=== PATIENT | female | born 1940 | race Caucasian/White ===

== ENCOUNTER 2017-02-13 20:57 | Inpatient (IN) | payer OTHER ==
[~2017-02-13] VITALS: Ht 152.4 cm; Wt 95.2 kg
[~2017-02-13 20:57] MED LIST: ACTONEL150 MG PO; ALBUTEROL2.5 MG/3 M IH; ASCORBIC ACID500 M3 PO; ASPIR 8181 M1 PO; ASPIR-LOW81 MG PO; ASPIRIN81 M2 PO; AUGMENTIN875 MG PO; Atarax,Vistaril PO; BYSTOLIC10 MG PO; CALCIUM 500 +1 EACH PO; COUMADIN3 M1 PO; COZAAR100 MG PO; CYMBALTA20 MG PO; ENDOCET 5-3251 EACH PO; FAMOTIDINE40 MG PO; FEXOFENADINE H180 MG PO; FIBER LAXATIVE625 M1 PO; GUAIFENESIN600 M1 PO; HYDRALAZINE HCL25 MG PO; HYDRALAZINE HCL50 M1 PO; HYZAAR 100-21 TABLET PO; KLONOPIN0.5 M1 PO; LASIX40 MG PO; LIPITOR20 MG PO; Lunesta PO; MICRO-K,K-DUR,10 MEQ PO; MIRAPEX0.5 MG PO; NORVASC10 MG PO; POTASSIUM CHLO10 MEQ PO; PREDNISONE10 MG PO; PREDNISONE20 MG PO; PREDNISONE5 M2 PO; PROBIOTIC1 EAC1 PO; SINGULAIR10 MG PO; SYMBICORT60 INHALAT IH; SYNTHROID100 MCG PO; Vitamin B-12 PO
[2017-02-13 21:55] LABS: EOSINOPHIL (%) 2.7 % (0-5); EOSINOPHIL COUNT 0.2 K/uL (0-0.3); HEMATOCRIT 30.3 % (36.0-46.0); IMMATURE GRANULOCYTE (%) 3.8 % (0.0-0.7); IMMATURE GRANULOCYTE COUNT 0.3 K/uL; LYMPHOCYTE COUNT 0.9 K/uL (1.0-2.8); MCH 30.8 PG (29.0-34.0); MCHC 32.3 G/DL (30.0-36.0); MCV 95.3 FL (83-99); MEAN PLAT.VOLUME 10.7 uM^3 (9.5-12.4); MONOCYTE (%) 12.9 % (3-12); NEUTROPHIL (%) 67.7 % (45-76); PLATELET COUNT 165 K/uL (156-360); RBC DIS.WIDTH-CV 13.3 % (11.8-14.6); RBC DIS.WIDTH-SD 46.7 % (39-53); RED BLOOD COUNT 3.18 M/uL (3.80-5.20); WHITE BLOOD COUNT 7.4 K/uL (4.1-10.2)
[2017-02-13 22:04] LABS: CHLORIDE 97 mEq/L (99-109); POTASSIUM 3.6 mEq/L (3.7-5.4); SODIUM 134 mEq/L (136-147)
[2017-02-13 22:06] LABS: GLUCOSE 127 mg/dL (70-99)
[2017-02-13 22:07] LABS: ANION GAP 10 MEQ/L (2-14)
[2017-02-13 22:10] LABS: GFR ESTIMATE (CALCULATED) 52 mL/min/
[2017-02-13 22:11] LABS: UREA NITROGEN (BUN) 18 mg/dL (9-23)
[2017-02-13] MEDS ORDERED: MIRAPEX0.5 MG PO (22:31)
[2017-02-13] MEDS ORDERED: PREDNISONE10 MG PO (22:32)
[2017-02-13] MEDS ORDERED: ONE-A-DAY ESSE1 EAC1 PO (22:33)
[2017-02-13] MEDS ORDERED: FUROSEMIDE40 MG PO (22:34)
[2017-02-13] MEDS ORDERED: ALDACTONE25 MG PO (22:34)
[2017-02-13] MEDS ORDERED: HYDROCORTISONE30 G2 TP (22:35)
[2017-02-13 22:54] LABS: ADD MIUA? YES; BILIRUBIN NEGATIVE; BLOOD NEGATIVE; COLOR YELLOW ((YELLOW)); GLUCOSE (STRIP) NEGATIVE; KETONES NEGATIVE; LEUKOCYTES LARGE; NITRITE NEGATIVE; PROTEIN (STRIP) 100; SPECIFIC GRAVITY 1.018 (1.000-1.030); UROBILINOGEN 0.2 MG/DL (0.2-1.0)
[2017-02-13 23:00] LABS: BACTERIA 3+ /HPF; EPITHELIAL CELLS RARE /HPF; HYALINE CASTS 0-5 /LPF; MUCUS TRACE /LPF; WHITE BLOOD CELLS TNTC /HPF (0-5)
[2017-02-14 01:14] VITALS: BP 117/57
[2017-02-14 03:50] VITALS: BP 112/58
[2017-02-14 06:59] LABS: EOSINOPHIL COUNT 0.4 K/uL (0-0.3); HEMATOCRIT 31.1 % (36.0-46.0); IMMATURE GRANULOCYTE (%) 4.2 % (0.0-0.7); IMMATURE GRANULOCYTE COUNT 0.3 K/uL; INSTRUMENT ABS NEUTROPHIL CT 4.8 K/uL; LYMPHOCYTE COUNT 0.8 K/uL (1.0-2.8); MCH 30.6 PG (29.0-34.0); MCHC 31.8 G/DL (30.0-36.0); MEAN PLAT.VOLUME 10.5 uM^3 (9.5-12.4); MONOCYTE (%) 12.8 % (3-12); MONOCYTE COUNT 0.9 K/uL (0-0.8); NEUTROPHIL COUNT 4.8 K/uL (1.8-6.4); PLATELET COUNT 152 K/uL (156-360); RBC DIS.WIDTH-CV 13.3 % (11.8-14.6); RBC DIS.WIDTH-SD 47.7 % (39-53); RED BLOOD COUNT 3.24 M/uL (3.80-5.20); WHITE BLOOD COUNT 7.2 K/uL (4.1-10.2)
[2017-02-14 07:20] LABS: ANION GAP 6 MEQ/L (2-14); CHLORIDE 102 MEQ/L (99-109); GFR ESTIMATE (CALCULATED) 52 mL/min/; GLUCOSE 114 mg/dL (70-99); POTASSIUM 3.9 MEQ/L (3.7-5.4); SAMPLE HEMOLYSIS CHECK 0; SAMPLE ICTERIC CHECK 0; SAMPLE LIPEMIA CHECK 0; SODIUM 137 MEQ/L (136-147); UREA NITROGEN (BUN) 19 mg/dL (9-23)
[2017-02-14 08:37] VITALS: BP 144/67; BP 244/67
[2017-02-14 12:02] VITALS: BP 108/53
[2017-02-14 16:21] VITALS: BP 108/53
[2017-02-14 20:20] VITALS: BP 148/67
[2017-02-15 07:09] VITALS: BP 137/61
[2017-02-15 16:53] VITALS: BP 111/54
[2017-02-15 21:39] VITALS: BP 126/56
[2017-02-15 23:40] VITALS: BP 128/60
[2017-02-16 08:05] VITALS: BP 132/64
[2017-02-16 08:31] LABS: HEMATOCRIT 31.1 % (36.0-46.0); MCH 31.7 PG (29.0-34.0); MCHC 33.1 G/DL (30.0-36.0); MCV 95.7 FL (83-99); MEAN PLAT.VOLUME 10.4 uM^3 (9.5-12.4); PLATELET COUNT 195 K/uL (156-360); RBC DIS.WIDTH-CV 13.2 % (11.8-14.6); RBC DIS.WIDTH-SD 46.3 % (39-53); RED BLOOD COUNT 3.25 M/uL (3.80-5.20); WHITE BLOOD COUNT 8.9 K/uL (4.1-10.2)
[2017-02-16 08:55] LABS: ANION GAP 9 MEQ/L (2-14); CHLORIDE 96 MEQ/L (99-109); GFR ESTIMATE (CALCULATED) 58 mL/min/; GLUCOSE 122 mg/dL (70-99); SAMPLE HEMOLYSIS CHECK 0; SAMPLE ICTERIC CHECK 0; SAMPLE LIPEMIA CHECK 0; SODIUM 135 MEQ/L (136-147); UREA NITROGEN (BUN) 18 mg/dL (9-23)
[2017-02-16 14:29] VITALS: BP 109/57
[2017-02-16 16:26] VITALS: BP 126/60
== END 2017-02-16 17:04 | disposition home or self-care (01) | DRG 690 ==
LOC: EME 20:57 → EDOF 23:20 → 2EASTP 23:20 → ENRESERV 23:21 → 2EASTP 02-14 00:40
PROVIDERS: Hospitalist; Nurse Practitioner Adult Health
DX: N39.0 Urinary tract infection, site not specified (principal); B96.4 Proteus (mirabilis) (morganii) as the cause of diseases classified elsewhere; L03.115 Cellulitis of right lower limb; L03.116 Cellulitis of left lower limb; I87.2 Venous insufficiency (chronic) (peripheral); G47.33 Obstructive sleep apnea (adult) (pediatric); E03.9 Hypothyroidism, unspecified; E78.5 Hyperlipidemia, unspecified; E87.6 Hypokalemia; G25.81 Restless legs syndrome; I11.0 Hypertensive heart disease with heart failure; I50.9 Heart failure, unspecified; I27.2 Other secondary pulmonary hypertension; I27.81 Cor pulmonale (chronic); J44.9 Chronic obstructive pulmonary disease, unspecified; J84.10 Pulmonary fibrosis, unspecified; J96.11 Chronic respiratory failure with hypoxia; K21.9 Gastro-esophageal reflux disease without esophagitis; G43.909 Migraine, unspecified, not intractable, without status migrainosus; D72.1 Eosinophilia; G89.29 Other chronic pain; M54.5 Low back pain; E66.9 Obesity, unspecified; Z68.41 Body mass index [BMI] 40.0-44.9, adult; Z99.81 Dependence on supplemental oxygen; Z79.82 Long term (current) use of aspirin
CPT/HCPCS: 71020; 71250; 80048; 80170; 81003; 83605; 85025; 85027; 87040; 87077; 87086; 87186; 93306; 93970; 94640; 94640 76; 94760; 94799; 99202; 99281; 99285; J0696; J1580; J1650; J2543; J7050; J7512

== ENCOUNTER 2017-02-21 14:41 | Emergency (ER) | payer OTHER ==
[~2017-02-21] VITALS: Ht 152.4 cm; Wt 90.8 kg
[~2017-02-21 14:41] MED LIST changes: +ALDACTONE25 MG PO; +FUROSEMIDE40 MG PO; +HYDROCORTISONE30 G2 TP; +ONE-A-DAY ESSE1 EAC1 PO
[2017-02-21 15:14] LABS: HEMATOCRIT 26.9 % (36.0-46.0); MCHC 32.7 G/DL (30.0-36.0); MCV 94.7 FL (83-99); MEAN PLAT.VOLUME 9.4 uM^3 (9.5-12.4); PLATELET COUNT 253 K/uL (156-360); RBC DIS.WIDTH-CV 13.4 % (11.8-14.6); RBC DIS.WIDTH-SD 46.6 % (39-53); RED BLOOD COUNT 2.84 M/uL (3.80-5.20); WHITE BLOOD COUNT 9.3 K/uL (4.1-10.2)
[2017-02-21 15:24] LABS: CHLORIDE 94 mEq/L (99-109); POTASSIUM 3.4 mEq/L (3.7-5.4); SODIUM 134 mEq/L (136-147)
[2017-02-21 15:27] LABS: GLUCOSE 110 mg/dL (70-99)
[2017-02-21 15:28] LABS: ANION GAP 13 MEQ/L (2-14)
[2017-02-21 15:29] LABS: TOTAL BILIRUBIN 0.8 mg/dL (0.0-1.0)
[2017-02-21 15:30] LABS: ALKALINE PHOSPHATASE 66 IU/L (3-129); GFR ESTIMATE (CALCULATED) 43 mL/min/
[2017-02-21 15:31] LABS: UREA NITROGEN (BUN) 22 mg/dL (9-23)
[2017-02-21 15:38] LABS: ADD MIUA? YES; BILIRUBIN NEGATIVE; BLOOD NEGATIVE; COLOR YELLOW ((YELLOW)); GLUCOSE (STRIP) NEGATIVE; KETONES NEGATIVE; LEUKOCYTES NEGATIVE; NITRITE NEGATIVE; PROTEIN (STRIP) NEGATIVE; SPECIFIC GRAVITY 1.009 (1.000-1.030); UROBILINOGEN 0.2 MG/DL (0.2-1.0)
[2017-02-21 15:41] LABS: BACTERIA RARE /HPF; EPITHELIAL CELLS RARE /HPF; MUCUS TRACE /LPF; RED BLOOD CELLS 0-5 /HPF (0-5); UCUL ADDED? YES
[2017-02-21 15:54] LABS: ABS NEUTROPHIL COUNT 7.7; ANISOCYTOSIS 1+; ATYPICAL LYMPHOCYTE 0.9 %; EOSINOPHIL ABS CT 0.4; EOSINOPHILS 4.3 % (0-5.0); GIANT PLATELETS 1+; INSTRUMENT ABS NEUTROPHIL CT 6.8 K/uL; LYMPHOCYTES 6.1 % (15.0-45.0); METAMYELOCYTES 2.6 %; MICROCYTOSIS 1+; MYELOCYTES 1.7 %; PLAT.SUFFICIENCY ADEQUATE; POLYCHROMASIA 1+; SEG.NEUTROPHILS 76.7 % (46.0-76.0)
[2017-02-21 18:25] VITALS: BP 135/56
== END 2017-02-21 18:26 | disposition home or self-care (01) ==
LOC: EME 14:41
PROVIDERS: Emergency Medicine
DX: R53.1 Weakness (principal); D64.9 Anemia, unspecified; I11.0 Hypertensive heart disease with heart failure; I50.9 Heart failure, unspecified; J44.9 Chronic obstructive pulmonary disease, unspecified; Z99.81 Dependence on supplemental oxygen; K21.9 Gastro-esophageal reflux disease without esophagitis; Z87.440 Personal history of urinary (tract) infections
CPT/HCPCS: 71010; 80053; 81003; 83605; 85025; 87086; 93005; 99281; 99285